=== PATIENT | male | born 1985 | race Caucasian/White ===

== ENCOUNTER 2017-02-11 05:39 | Emergency (ER) | payer SELFPAY ==
[2017-02-11 06:00] VITALS: TEMP 96.7; O2SAT 100
[2017-02-11] MEDS ORDERED: LACTATED RINGERS 1,000 ML ONE (06:12)
[2017-02-11] MEDS ORDERED: ONDANSETRON INJ 4 MG/2 ML VIAL ONE (06:13)
[2017-02-11] MEDS ORDERED: MORPHINE SULFATE INJ 10 MG/ML VIAL IV ONE (06:16)
[2017-02-11] MEDS ORDERED: KETOROLAC TROMETHAMINE INJ 30 MG/ML VIAL IV ONE (06:16)
[2017-02-11] MEDS ORDERED: ONDANSETRON INJ 4 MG/2 ML VIAL IV ONE (06:16)
[2017-02-11] MEDS ORDERED: LACTATED RINGERS 1,000 ML IVS ONE (06:16)
--- NOTE | 2017-02-11 06:18 | ED.PDOC ---
History of Present Illness - General Source: patient Exam Limitations: no limitations - History of Present Illness Initial Comments: Gerg Teresa 31 y/o male brought to er by POV when he woke up this am with stabbing left flank pain and 2 episodes of vomiting.No diarrhea,had regular bm but has pain on urination. Timing/Duration: 1-3 hours Severity: moderate Improving Factors: nothing Worsening Factors: nothing Associated Symptoms: other - see hpi <Grant Greene - Last Filed: 02/11/17 06:24> <Ervin Mims - Last Filed: 02/11/17 08:16> - General Chief Complaint: Problem Stated Complaint: Left flank pain Time Seen by Provider: 02/11/17 06:14 - History of Present Illness Allergies/Adverse Reactions: Allergies NO KNOWN ALLERGY Allergy (Verified 02/11/17 05:57) Home Medications: Ambulatory Orders Acetamin W/Cod #3 Tab [Tylenol #3 Tab] 1 ea PO Q4-6H PRN #10 tab 02/11/17 Ibuprofen 800 mg PO TID #12 tab 02/11/17 Review of Systems - Review of Systems Constitutional: States: no symptoms reported EENTM: States: no symptoms reported Respiratory: States: no symptoms reported Cardiology: States: no symptoms reported Gastrointestinal/Abdominal: States: no symptoms reported Genitourinary: States: see HPI Musculoskeletal: States: no symptoms reported Skin: States: no symptoms reported <Grant Greene - Last Filed: 02/11/17 06:24> Past Medical History (General) - Patient Medical History Hx Seizures: No Hx Stroke: No Hx Dementia: No Hx Asthma: No Hx of COPD: No Hx Cardiac Disorders: No Hx Congestive Heart Failure: No Hx Pacemaker: No Hx Hypertension: No Hx Thyroid Disease: No Hx Diabetes: No Hx Gastroesophageal Reflux: No Hx Renal Disease: No Hx Cancer: No Hx of HIV: No Hx Hepatitis C: No Hx MRSA: No Surgical History: no surgical history - Vaccination History Hx Tetanus, Diphtheria Vaccination: No Hx Influenza Vaccination: No Hx Pneumococcal Vaccination: No Immunizations Up to Date: Yes - Social History Hx Tobacco Use: No Hx Alcohol Use: Yes Hx Physical Abuse: No Hx Emotional Abuse: No Hx Suspected Abuse: No - Activities of Daily Living Patient Lives Alone: No <Grant Greene - Last Filed: 02/11/17 06:24> Family Medical History - Family History Mother Family History: No Known Living Status: Still Living Hx Family;Other: kidney stone sister <Grant Greene R - Last Filed: 02/11/17 06:24> Physical Exam - Physical Exam General Appearance: Alert, Comfortable, No apparent distress Eye Exam: bilateral normal Ears, Nose, Throat: hearing grossly normal, normal ENT inspection Neck: non-tender, full range of motion, supple Respiratory: chest non-tender, lungs clear, normal breath sounds Cardiovascular/Chest: normal peripheral pulses, regular rate, rhythm, no murmur Peripheral Pulses: radial,right: 2+, radial,left: 2+ Gastrointestinal/Abdominal: normal bowel sounds, non tender, soft, no organomegaly, no pulsatile mass Back Exam: no vertebral tenderness, CVA tenderness (L) Extremity: non-tender, no pedal edema, no calf tenderness Skin Exam: normal color, warm/dry <Grant Greene R - Last Filed: 02/11/17 06:24> Progress - Progress Progress: 02/11/17 08:11 Care taken over at 0700. Labs and CT reviewed, patient interviewed and examined. Pt states he feels a lot better compared to when he came in. CT confirmed suspicion or urolithiasis. Plan is for discharge home with recommendation to consume plenty of water and take NSAIDs for pain. T3 as needed for severe pain. Work excuse for tomorrow. Patient given return precautions as well. - Results/Orders Results/Orders: Laboratory Results - last 24 hr 02/11/17 02/11/17 02/11/17 06:00 06:00 06:36 WBC 13.7 H RBC 4.75 Hgb 14.7 Hct 43.1 MCV 90.7 MCH 31.0 MCHC 34.2 RDW 14.4 Plt Count 279 MPV 8.5 Absolute Neuts (auto) 11.20 H Absolute Lymphs (auto) 1.20 Absolute Monos (auto) 0.80 Absolute Eos (auto) 0.40 Absolute Basos (auto) 0.10 Neutrophils % 81.7 H Lymphocytes % 8.9 L Monocytes % 5.7 Eosinophils % 3.0 Basophils % 0.7 Sodium Potassium Chloride Carbon Dioxide Anion Gap BUN Creatinine BUN/Creatinine Ratio Random Glucose Serum Osmolality Calcium Total Bilirubin AST ALT Alkaline Phosphatase Serum Total Protein Albumin Globulin Albumin/Globulin Ratio Lipase Urine Color Yellow Urine Appearance Clear Urine pH >= 9.0 H* Ur Specific [place] 1.015 Urine Protein Trace Urine Glucose (UA) Negative Urine Ketones Trace Urine Blood Moderate H Urine Nitrite Negative Urine Bilirubin Negative Urine Urobilinogen 0.2 Ur Leukocyte Esterase Negative Urine RBC 20-30 H Urine WBC 1-3 Ur Epithelial Cells 0-1 Urine Bacteria Rare Urine Opiates Screen Negative Urine Barbiturates Negative Ur Phencyclidine Scrn Negative U Amphetamin/Meth Scrn Negative U Benzodiazepines Scrn Negative U Cocaine Metab Screen Negative U Cannabinoids Screen Positive H 02/11/17 06:36 WBC RBC Hgb Hct MCV MCH MCHC RDW Plt Count MPV Absolute Neuts (auto) Absolute Lymphs (auto) Absolute Monos (auto) Absolute Eos (auto) Absolute Basos (auto) Neutrophils % Lymphocytes % Monocytes % Eosinophils % Basophils % Sodium 139 Potassium 4.5 Chloride 104 Carbon Dioxide 22 Anion Gap 17.5 BUN 10 Creatinine 0.96 BUN/Creatinine Ratio 10.4 Random Glucose 146 H Serum Osmolality 279.2 Calcium 9.3 Total Bilirubin 0.8 AST 35 ALT 18 Alkaline Phosphatase 69 Serum Total Protein 7.0 Albumin 4.5 Globulin 2.5 Albumin/Globulin Ratio 1.8 Lipase 25 Urine Color Urine Appearance Urine pH Ur Specific [place] Urine Protein Urine Glucose (UA) Urine Ketones Urine Blood Urine Nitrite Urine Bilirubin Urine Urobilinogen Ur Leukocyte Esterase Urine RBC Urine WBC Ur Epithelial Cells Urine Bacteria Urine Opiates Screen Urine Barbiturates Ur Phencyclidine Scrn U Amphetamin/Meth Scrn U Benzodiazepines Scrn U Cocaine Metab Screen U Cannabinoids Screen 02/11/17 02/11/17 02/11/17 05:57 06:39 07:00 Temperature 96.7 F L Pulse Rate [ 72 58 L 70 Left Radial] Respiratory 20 18 18 Rate Blood Pressure 128/65 129/82 117/72 [Left Arm] O2 Sat by Pulse 100 100 100 Oximetry <Ervin Mims - Last Filed: 02/11/17 08:16> Departure <Grant Greene - Last Filed: 02/11/17 06:24> - Departure Time of Disposition: 08:13 <Ervin Mims - Last Filed: 02/11/17 08:16> - Departure Clinical Impression: Renal colic on left side Urolithiasis Qualifiers: Urinary calculus location: ureter Qualified Code(s): N20.1 - Calculus of ureter Disposition: Discharge to Home or Self Care Condition: Good Departure Forms: ED Discharge - Pt. Copy, Patient Portal Self Enrollment Instructions: DI for Kidney Stones Prescriptions: Acetamin W/Cod #3 Tab [Tylenol #3 Tab] 1 ea PO Q4-6H PRN #10 tab PRN Reason: Pain -- Moderate To Severe Ibuprofen 800 mg PO TID #12 tab Home Medications: Ambulatory Orders Acetamin W/Cod #3 Tab [Tylenol #3 Tab] 1 ea PO Q4-6H PRN #10 tab 02/11/17 Ibuprofen 800 mg PO TID #12 tab 02/11/17 Additional Instructions: Stay well hydrated. Work excuse for Monday. Symptoms should improve over the next 2 to 3 days. Return to ER if condition worsens.
--- NOTE | 2017-02-11 06:55 | RAD ---
EXAM DESCRIPTION: Chest,2 Views CLINICAL HISTORY: bronchitis COMPARISON: None. FINDINGS: Frontal and lateral views of the chest. The cardiomediastinal silhouette has normal size and contour. No consolidation, pneumothorax, or pleural effusion. No displaced rib fractures identified. Upper abdominal soft tissues are unremarkable. IMPRESSION: 1. No acute pulmonary process identified. Electronically signed by: Tomas Lopez 02/11/2017 6:54 AM [facility]
--- NOTE | 2017-02-11 07:06 | CT ---
Procedure: CT ABDOMEN PELVIS WITHOUT IV CONTRAST Exam Date: 02/11/2017 Ordering Provider: Grant Greene Clinical Indication: left flank pain Comparison: None TECHNIQUE: 5 mm images were taken through the abdomen and pelvis without the administration of nonionic intravenous contrast material. Oral contrast was not administered. Coronal and sagittal reformatted images were generated. This exam was performed according to our departmental dose optimization program which includes use of automated exposure control, adjustment of the mA and/or kV according to patient size and/or use of iterative reconstruction technique. FINDINGS: Lower chest: Nonacute Abdomen: Liver and biliary system: Unremarkable. No calcified gallstones. Spleen: Unremarkable Pancreas: Unremarkable Adrenal glands: Unremarkable Kidneys, ureters, bladder: Millimetric stones in both kidneys. There is a 3 mm stone at the left UVJ with moderate to severe hydronephroureter on the left. No hydronephrosis in the right kidney. Urinary bladder is otherwise unremarkable. Lymph nodes: No lymphadenopathy Retroperitoneum, abdominal wall, peritoneal cavity: No ascites. No free intraperitoneal air. Vessels: No abdominal aortic aneurysm. Pelvis: Lymph nodes: No lymphadenopathy Bowel: No bowel obstruction. Large colonic stool burden. No findings to suggest acute appendicitis. Suggested mural thickening of a few small bowel loops in the upper abdomen.. Pelvic organs: Unremarkable Bones: Nonacute IMPRESSION: 1. There is a 3 mm stone at the left UVJ with moderate to severe hydronephroureter on the left. 2. Suggested mural thickening of a few small bowel loops in the upper abdomen. No bowel obstruction. Electronically signed by: Mingo Fry MD 02/11/2017 7:05 AM [employer]
[2017-02-11 08:38] VITALS: BP 120/71
== END 2017-02-11 08:30 | disposition home or self-care (01) ==
LOC: ER 05:39
DX: N20.1 Calculus of ureter (principal)
CPT/HCPCS: 36415; 71020; 74176; 80053; 80307; 81001; 83690; 85025; J1885; J2270; J2405; J7120

== ENCOUNTER 2017-06-12 10:13 | Inpatient (IN) | payer SELFPAY ==
--- NOTE | 2017-06-12 10:48 | ED.PDOC ---
History of Present Illness - General Chief Complaint: Dental/Mouth Stated Complaint: swelling left side of face Time Seen by Provider: 06/12/17 10:46 Source: patient Exam Limitations: no limitations - History of Present Illness Initial Comments: Patient presents with left lower cheek and gum pain since last night. He was having chills last night. He said it started swelling this morning. Has had a fever this morning. Denies previous history of similar symptoms. No other complaints. Timing/Duration: other - 12 hours Severity: moderate Improving Factors: rest Worsening Factors: eating Associated Symptoms: fever/chills Allergies/Adverse Reactions: Allergies NO KNOWN ALLERGY Allergy (Verified 02/11/17 05:57) Home Medications: Ambulatory Orders Acetamin W/Cod #3 Tab [Tylenol #3 Tab] 1 ea PO Q4-6H PRN #10 tab 02/11/17 Ibuprofen 800 mg PO TID #12 tab 02/11/17 Review of Systems - Review of Systems Constitutional: States: no symptoms reported EENTM: States: other - as in HPI Respiratory: States: no symptoms reported Cardiology: States: no symptoms reported Gastrointestinal/Abdominal: States: no symptoms reported Genitourinary: States: no symptoms reported Musculoskeletal: States: no symptoms reported Skin: States: no symptoms reported Neurological: States: no symptoms reported Endocrine: States: no symptoms reported Hematologic/Lymphatic: States: no symptoms reported Past Medical History (General) - Patient Medical History Hx Seizures: No Hx Stroke: No Hx Dementia: No Hx Asthma: No Hx of COPD: No Hx Cardiac Disorders: No Hx Congestive Heart Failure: No Hx Pacemaker: No Hx Hypertension: No Hx Thyroid Disease: No Hx Diabetes: No Hx Gastroesophageal Reflux: No Hx Renal Disease: No Hx Cancer: No Hx of HIV: No Hx Hepatitis C: No Hx MRSA: No Surgical History: no surgical history - Vaccination History Hx Tetanus, Diphtheria Vaccination: No Hx Influenza Vaccination: No Hx Pneumococcal Vaccination: No - Social History Hx Tobacco Use: No Hx Alcohol Use: Yes Hx Physical Abuse: No Hx Emotional Abuse: No Hx Suspected Abuse: No Family Medical History - Family History Mother Family History: No Known Living Status: Still Living Hx Family;Other: kidney stone sister Physical Exam - Physical Exam General Appearance: Alert Ears, Nose, Throat: other - TTP over left lower gumline. No palpable swelling in the gum or buccal membrane. No LAD. TTP under the left jaw in the soft tissue. Respiratory: lungs clear Cardiovascular/Chest: normal peripheral pulses, regular rate, rhythm Gastrointestinal/Abdominal: normal bowel sounds, non tender, soft Skin Exam: normal color Lymphatic: no adenopathy Progress - Progress Progress: 06/12/17 13:47 Laboratory Tests 06/12/17 06/12/17 11:18 11:18 WBC 10.3 RBC 4.76 Hgb 15.0 Hct 43.7 MCV 91.9 MCH 31.5 H MCHC 34.3 RDW 13.5 Plt Count 195 MPV 8.4 Absolute Neuts (auto) 9.00 H Absolute Lymphs (auto) 0.60 L Absolute Monos (auto) 0.60 Absolute Eos (auto) 0.10 Absolute Basos (auto) 0.00 Neutrophils % 87.9 H Lymphocytes % 5.6 L Monocytes % 5.5 Eosinophils % 0.7 L Basophils % 0.3 Sodium 137 Potassium 3.6 Chloride 100 L Carbon Dioxide 27 Anion Gap 13.6 BUN 6 L Creatinine 0.68 BUN/Creatinine Ratio 8.8 L Random Glucose 107 H Serum Osmolality 271.9 L Calcium 9.8 wbc normal but 87.9% neutrophils and fever suggests a burgeoning systemic process. CT of the soft tissues of the face and neck showed an abscess with fluid in the soft tissues suggesting an inflammatory or possibly infective process. Patient was started on Ampicillin 500 mg IV x one in the E.D. and accepted for admission. Departure - Departure Clinical Impression: Dental abscess, Facial cellulitis Disposition: Admit Patient Condition: Fair Departure Forms: ED Discharge - Pt. Copy, Patient Portal Self Enrollment Instructions: DI for Mouth Pain Diet: other - as per hospitalist Activity: increase activity as tolerated Home Medications: Ambulatory Orders Acetamin W/Cod #3 Tab [Tylenol #3 Tab] 1 ea PO Q4-6H PRN #10 tab 02/11/17 Ibuprofen 800 mg PO TID #12 tab 02/11/17
[2017-06-12] MEDS ORDERED: KETOROLAC TROMETHAMINE INJ 30 MG/ML VIAL IM ONE (11:02)
--- NOTE | 2017-06-12 13:32 | CT ---
EXAM DESCRIPTION: Soft Tissue Neck w/Contrast CLINICAL HISTORY: left facial pain with gum swelling and fever COMPARISON: None. TECHNIQUE: Postcontrast CT images of the neck are obtained with coronal and sagittal reconstructed images. This exam was performed according to our departmental dose-optimization program, which includes automated exposure control, adjustment of the mA and/or kV according to patient size and/or use of iterative reconstruction technique . FINDINGS: Visualized skull base shows heterogeneous attenuation complete opacification of the right maxillary sinus with evidence of possible previous right medial wall resection. Bilateral parotid and submandibular glands are normal and symmetric. There is bilateral tonsillar hypertrophy. The tongue and base of the tongue unremarkable. The epiglottis and vocal cords are unremarkable. Thyroid is unremarkable. There are nonspecific less than 1 cm cervical chain lymph nodes bilaterally. Visualized lung apices are unremarkable. There is asymmetric soft tissue edema and subcutaneous fat stranding in the left mandibular to submandibular region extending to the submental region. Large caries in the most posterior left mandibular molar measures 5 mm. Large caries of the posterior left maxillary molar. There is a large caries of the left mandibular tooth #20 with periapical lucency. This is due to the adjacent to the molar containing root canal. No obvious disruption of the mandibular cortex seen. Images 47 through 59 show a subtle area of low attenuation with adjacent enhancement along the mandibular cortex. This is also best seen on coronal image 13. Cervical spine is unremarkable. Caries of the posterior 3 right maxillary molars and most posterior right mandibular molar are seen. The teeth are incompletely included in the [id number]. IMPRESSION: Poor dentition is seen with multiple maxillary and mandibular caries with associated periapical lucency. Large caries with periapical lucency involving mandibular left tooth #20 adjacent to the molar with root canal suggest periapical abscess with small probable abscess fluid collection medial to the mandible at this level. Soft tissue swelling and inflammation suggests infectious or inflammatory process in the left mandibular to submandibular region partly visualized on this exam. Electronically signed by: Andrzej Hunter MD 06/12/2017 1:31 PM CDT
[2017-06-12] MEDS ORDERED: SODIUM CHL 0.9% IVPB ONE (13:45)
[2017-06-12] MEDS ORDERED: AMPICILLIN IVPB ONE (13:45)
[2017-06-12] MEDS ORDERED: AMPICILLIN SODIUM IV ONE (14:00)
[2017-06-12] MEDS ORDERED: SODIUM CHLORIDE 0.9% 50ML 50 ML ONE (14:02)
--- NOTE | 2017-06-12 14:09 | HP ---
SUPERVISING PHYSICIAN: Rob Newman M.D. CHIEF COMPLAINT: Swelling to the left side of the face. HISTORY OF PRESENT ILLNESS: Mr. Teresa is a 31 year-old male patient that presented to the Emergency Department today for evaluation of left lower cheek and gum swelling with severe pain that started last night. He noted he had been having some pain for 3 days but woke up this morning and his left lower jaw was swollen. He noted he had some fevers last night with chills. He has had past dental caries that have resulted in abscesses in the past but has not sought any dental treatment. CT of the soft tissues of the neck were completed in the Emergency Department in the Emergency Department and per radiology interpretation there was note of poor dentition seen with multiple maxillary and mandibular caries with associated periapical lucencies. There is note of large caries with periapical lucency involving the mandibular left tooth #20 adjacent to a molar with a root canal suggesting periapical abscess with small probable abscess fluid collection medial to the mandible at the same level. There was note of soft tissue swelling and inflammation suggesting infectious or inflammatory process in the left mandibular to submandibular regions partially visualized on the current exam. Given that the patient was febrile initially with a temperature of 100.7. Laboratory studies were completed that showed he had a normal white count. Lactic acid was normal. Given the location of the abscess and fever, the patient is now going to be admitted to the Medical/Surgical floor for at least 24 to 48 hours of parenteral antibiotics. He was started on Ampicillin initially in the Emergency Department and admitted in stable condition. PAST MEDICAL HISTORY: Unremarkable. PAST SURGICAL HISTORY: No surgeries listed. CURRENT MEDICATIONS: No chronic medications or [id number] medications. ALLERGIES: NO KNOWN DRUG ALLERGIES. FAMILY HISTORY: Unremarkable. SOCIAL HISTORY: The patient currently lives in [place] and works at [employer]. He does note that he smokes marijuana on a regular basis but drinks infrequently alcohol. REVIEW OF SYSTEMS: CONSTITUTIONAL: As noted in History of Present Illness, chills and fevers, general malaise. HEENT: As noted in History of Present Illness with swelling to the head and neck on the left but denies any ear pain, sore throat, nasal congestion. RESPIRATORY: Denies any shortness of breath, wheezing, coughing. CARDIOVASCULAR: Denies any chest pains, palpitations or syncopal episodes. GASTROINTESTINAL: Denies any nausea, vomiting, diarrhea or abdominal pains. MUSCULOSKELETAL: Denies any arthralgias or any other complaints. INTEGUMENT: No reported rashes or lesions. NEUROLOGIC: Denies any ataxia, seizures, changes in vision or hearing, or headaches. PHYSICAL EXAMINATION: VITAL SIGNS: Temperature 100.7, pulse 106, blood pressure 138/79, respirations 20, satting 96% on room air. Admission weight is 65.8 kg. GENERAL: On admission to the Medical/Surgical floor the patient appears to be comfortable in no acute distress. He is alert. HEENT: As noted, tender to palpation over the left mandible and swelling is noted in the buccal membranes and soft tissues submandibular area. No obvious drainage. No lesions. Dentition is noted to be very poor with multiple dental caries and poorly maintained teeth. Tympanic membranes were clear bilaterally. RESPIRATORY: Chest is clear to auscultation bilaterally without any rhonchi, wheezing or rales. CARDIOVASCULAR: Heart was regular rate and rhythm without appreciable murmurs, gallops, or rubs. ABDOMEN: Soft, non-tender. Positive bowel sounds. EXTREMITIES: No clubbing, cyanosis or edema. LYMPHATICS: No cervical adenopathy. NEUROLOGIC: He is alert and oriented times three. Facial features were symmetrical except for noted swelling as noted above to the left lower jaw. There is no notable nystagmus. LABORATORY: White count is 10,300, hemoglobin 15, hematocrit 43.7, platelet count 195,000. Differential shows to be with a left shift with no leukocytosis. Electrolytes were within normal limits with potassium 3.6, BUN 6 , creatinine 0.68, glucose 107, lactic acid 0.7, calcium 9.8. MICROBIOLOGY: Blood cultures are pending. RADIOLOGY: Soft tissue of the neck per radiology interpretation showed soft tissue of the face and neck abscess with fluid in the soft tissues suggesting an inflammatory or possible infective process. Please refer to that full report for details. ASSESSMENT: 1. Periodontitis involving the left lower mandible specifically #20 left molar with soft tissue abscess with no areas of obvious loculation for drainage secondary to poor dentition requiring initiation of IV antibiotics due to fever and left shift with concerns for developing possible bacteremia. 2. Sepsis secondary to #1 of the left lower mandibular and submandibular area requiring aggressive management with IV antibiotics for at least 24 to 48 hours. 3. Febrile illness secondary to #1. 4. Chronic abuse of cannabinoids. PLAN: The patient is going to be admitted for initiation of IV parenteral antibiotics to include Unasyn 3 grams every 6 hours for at least 24 to 48 hours. He was given a 500 mg dose of Ampicillin initially in the Emergency Department. Given that his lactic acid is normal and his electrolytes are normal, will hold off on any IV fluids at this time. He will be given DVT prophylaxis as per protocol. I did discuss with him at length resources, specifically at [place] [facility] for seeking dental care to further address definitive treatment of the using infectious process. Once clinically stable, the patient can certainly be transitioned to ora therapy with Augmentin and discharged to continue with outpatient treatment plan. Until he is stable and able to transition to oral medications, will continue to monitor and treat appropriately. #[id number] [facility]
[2017-06-12] MEDS ORDERED: MORPHINE SULFATE INJ 10 MG/ML VIAL IV PRN (14:36)
[2017-06-12] MEDS ORDERED: HYDROcodone 5MG/APAP 325MG 1 EA TAB PO PRN (14:36)
[2017-06-12] MEDS ORDERED: SODIUM CHLORIDE 0.9% (FLUSH) 10 ML SYG IV PRN (14:36)
[2017-06-12] MEDS ORDERED: ACETAMINOPHEN 325 MG TAB PO PRN (14:36)
[2017-06-12] MEDS ORDERED: ONDANSETRON INJ 4 MG/2 ML VIAL IV PRN (14:36)
[2017-06-12] MEDS ORDERED: IV SET AND CAP CHANGE INJ INJ SCH (15:00)
[2017-06-12] MEDS ORDERED: AMPICILLIN & SULBACTAM SODIUM 3 GM VIAL ONE ×3 (15:05→19:17)
[2017-06-12] MEDS ORDERED: SODIUM CHL 0.9% 100ML MINI-BAG 100 ML IVPB ONE ×3 (15:05→19:17)
--- NOTE | 2017-06-12 15:13 | PCM.CORE ---
Physician DVT/VTE - Nurse DVT Assessment & Total Each Risk Factor Represents 1 Point: Hx of smoking past year DVT Assessment Score: 1 - 0-1 Low Risk Treatments: Early Ambulation, Low Risk no further treatment or intervention needed
[2017-06-12] MEDS: KETOROLAC TROMETHAMINE INJ 30 MG/ML VIAL IV SCH ×2 (15:39→21:58)
[2017-06-12] MEDS: AMPICILLIN & SULBACTAM SODIUM 3 GM in SODIUM CHL 0.9% 100ML MINI-BAG 100 ML IVPB SCH ×2 (15:39→21:57)
--- NOTE | 2017-06-12 17:09 | RAD ---
EXAM DESCRIPTION: Chest,2 Views CLINICAL HISTORY: cough COMPARISON: Previous study February 11, 2017 TECHNIQUE: PA/lateral FINDINGS: There is no acute appearing cardiac or pulmonary abnormality. Mild rightward curvature of the T-spine. Heart size is normal with normal pulmonary vascularity. No pleural effusion or pneumothorax. Lungs are hyperexpanded with no consolidating infiltrate. Lateral view shows intact sternum and T-spine. Compared to previous study, no change is evident. IMPRESSION: No acute process is identified in the chest. Electronically signed by: Peiro Balderrama MD 06/12/2017 5:08 PM CDT
[2017-06-13] MEDS: AMPICILLIN & SULBACTAM SODIUM 3 GM in SODIUM CHL 0.9% 100ML MINI-BAG 100 ML IVPB SCH ×4 (03:44→21:46)
[2017-06-13] MEDS: KETOROLAC TROMETHAMINE INJ 30 MG/ML VIAL IV SCH ×4 (03:45→21:47)
[2017-06-13] MEDS ORDERED: SODIUM CHL 0.9% 100ML MINI-BAG 100 ML IVPB ONE ×4 (08:05→19:26)
[2017-06-13] MEDS ORDERED: AMPICILLIN & SULBACTAM SODIUM 3 GM VIAL ONE ×4 (08:06→19:26)
[2017-06-13] MEDS ORDERED: TEMAZEPAM 15 MG CAP PO PRN (17:37)
--- NOTE | 2017-06-13 19:16 | PN ---
DATE: 06/13/17 SUPERVISING PHYSICIAN: Rob Newman M.D. SUBJECTIVE: The patient is sitting up in his bed. His pain is much less than it has been. He has also had no fever. Denies any nausea or vomiting, diarrhea or constipation. Does complain of some insomnia. OBJECTIVE: VITAL SIGNS: He is afebrile, heart rate 100, blood pressure 121/79, respiratory rate 18, O2 sat is 99% on room air. HEENT: The left side of his face continues to be slightly edematous and warm to touch, but there is no erythema. RESPIRATORY: Essentially clear to auscultation bilaterally. CARDIAC : Regular rate and rhythm. GASTROINTESTINAL: Abdomen is soft, nondistended, non -tender. Bowel sounds are positive. NEUROLOGIC: He is awake, alert and oriented times three. LABORATORY: WBCs 8.7 with hemoglobin 14.8, hematocrit 43.7. Metabolic panel is basically within normal limits. Preliminary blood cultures show no growth after 24 hours. All other labs and films have been reviewed via the EMR. ASSESSMENT: 1. Periodontitis involving the left lower mandible specifically #20 left molar with soft tissue abscess. There is no obvious loculation for drainage. He does have poor dentition. IV antibiotics are continuing due to fever and left shift with concerns for developing bacteremia. 2. Sepsis secondary to #1 of the left lower mandibular and submandibular area requiring aggressive management with IV antibiotics for at least 24 to 48 hours. 3. Febrile illness secondary to #1. 4. Chronic abuse of cannabinoids. PLAN: We will continue present supportive care. We will continue with his Unasyn and he will go home on Augmentin. He is to have followup with [facility] in [place]. [employer] is getting the paperwork in order for him to begin treatment there. I will also give him some Restoril for sleep tonight. Hopefully he can be discharged tomorrow or the next day with close followup with PCP as well as the dental clinic in [place]. Otherwise we will monitor the patient closely and follow as needed. #[id number] [facility]
[2017-06-14 02:20] VITALS: O2SAT 99
[2017-06-14] MEDS: AMPICILLIN & SULBACTAM SODIUM 3 GM in SODIUM CHL 0.9% 100ML MINI-BAG 100 ML IVPB SCH ×2 (04:03→11:14)
[2017-06-14] MEDS: KETOROLAC TROMETHAMINE INJ 30 MG/ML VIAL IV SCH ×2 (04:04→11:14)
[2017-06-14] MEDS ORDERED: SODIUM CHL 0.9% 100ML MINI-BAG 100 ML IVPB ONE (08:03)
[2017-06-14] MEDS ORDERED: AMPICILLIN & SULBACTAM SODIUM 3 GM VIAL ONE (08:03)
[2017-06-14 12:16] VITALS: BP 133/75; TEMP 99
--- NOTE | 2017-06-15 10:02 | DS ---
SUPERVISING PHYSICIAN: Rob Newman M.D. DISCHARGE DIAGNOSES: 1. Periodontitis involving the left lower mandible specifically #20 left molar with soft tissue abscess with no obvious loculation for drainage, he does have poor dentition. He was treated on Unison IV antibiotics while an inpatient. 2. Sepsis secondary to #1 of the left lower mandibular and submandibular areas requiring aggressive management with IV antibiotics for at least 24 to 48 hours. 3. Febrile illness secondary to #1. 4. Chronic abuse of cannabinoids. HISTORY OF PRESENT ILLNESS: Mr. Teresa is a 31 year-old male patient who presented to the Emergency Room on the date of admission for evaluation of the left lower cheek and gum swelling with severe pain that started the previous day. He has been having pain for about 3 days but woke up the morning of admission with sever chills. He has had a history of dental caries that have resulted in abscesses in the past. He has not had any dental treatment. CT of the soft tissues of the neck were completed in the Emergency Department and there was multiple maxillary and mandibular caries with associated periapical lucencies. There is note of a large caries with periapical lucency involving the mandibular left tooth #20 adjacent to a molar with a root canal suggesting periapical abscess with small probable abscess fluid collection medial to the mandible at the same level. There was also a note of soft tissue swelling and inflammation suggesting infectious or inflammatory process in the left mandibular to submandibular regions partially visualized on the CT exam. The patient was febrile initially with a temperature of 100.7, had a normal white count as well as a normal lactic acid. The patient was admitted to the hospital for IV antibiotics which included ampicillin in the Emergency Room and was continued on Unison after admission. HOSPITAL COURSE: The patient continued to have a normal WBC and an unremarkable CBC after his neutrophils normalized. Electrolytes were basically within normal limits. Vital signs remained stable. Patient complained of much less pain over the course of his treatment. He was counseled on obtaining dental care at the patient resource center in [place] that provides dental care for patients based on their income. He was given information as well as paperwork to followup. He was encouraged to get a PCP and given Sarah Davis's telephone number at [facility] for followup within two weeks. He will be discharged home on Augmentin for 8 additional days. He is to resume his previous diet, increase his activity as tolerated and return to the hospital or followup with his primary care physician for any further problems. DISCHARGE MEDICATION: 1. Augmentin 875 b.i.d. x8 days, #16. Dr. Newman is the collaborating physician available for consultation. #[id number] [facility]
== END 2017-06-14 13:45 | disposition home or self-care (01) | DRG 872 ==
LOC: ER 10:13 → MS 14:08
PROVIDERS: ADMIT Nurse Practitioner Family; ATTEND Nurse Practitioner Acute Care
DX: A41.9 Sepsis, unspecified organism (principal); K02.9 Dental caries, unspecified; K04.7 Periapical abscess without sinus; F12.20 Cannabis dependence, uncomplicated